=== PATIENT | male | born 1975 | race Caucasian/White ===

== ENCOUNTER → 2019-04-21 11:42 | Outpatient (CLI) | payer OTHER, SELFPAY ==
[2019-04-21 12:36] LABS: Influenza A and B by PCR Rapid Negative (Negative)
== END ==
PROVIDERS: Family Provider Family Medicine; PCP Family Medicine; Visit Provider Nurse Practitioner
DX: R50.9 Fever, unspecified (principal)
CPT/HCPCS: 87400

== ENCOUNTER → 2019-04-21 11:50 | Outpatient (CLI) | payer OTHER, SELFPAY ==
--- NOTE | 2019-04-21 11:51 | DI.RAD.S_ITS ---
PROCEDURE: XR CHEST 2V INDICATIONS: Cough, fever TECHNIQUE: 2 views of the chest were acquired. COMPARISON: None. FINDINGS: Surgical changes and devices: None. Lungs and pleura: Lungs are clear. No pleural effusions or pneumothorax. Mediastinum: Mediastinal contours are normal. Heart size is normal. Bones and chest wall: No suspicious bony abnormalities. Soft tissues appear unremarkable. IMPRESSION: Normal for age, source of current cough and fever symptoms is not seen. Dictated by: Tyron Mraiano M.D. on 04/21/2019 at 12:25 Approved by: Tyron Mariano M.D. on 04/21/2019 at 12:25
== END ==
PROVIDERS: PCP Family Medicine; Visit Provider Nurse Practitioner
DX: R05 Cough (principal); R50.9 Fever, unspecified
CPT/HCPCS: 71046; 87400

== ENCOUNTER → 2020-11-08 15:41 | Outpatient (CLI) | payer BC, SELFPAY ==
[2020-11-08 16:07] LABS: COVID19 -Nasal RAPID Negative (Negative)
== END ==
PROVIDERS: PCP Family Medicine; Visit Provider Physician Assistant
DX: R05 Cough (principal)
CPT/HCPCS: 87635

== ENCOUNTER → 2021-09-15 09:01 | Outpatient (CLI) | payer BC, SELFPAY ==
[2021-09-15 10:13] LABS: Add Manual Diff / Slide Review NO; Basophils Absolute Auto 0 /uL (0-100); Basophils Percent Auto 0.7 % (0-2); Eosinophils Absolute Auto 100 /uL (0-450); Eosinophils Percent Auto 1.5 % (2-4); Hematocrit 46.8 % (41-53); Lymphocytes Absolute Auto 1800 /uL (1100-4500); Lymphocytes Percent Auto 36.9 % (25-40); Mean Corpuscular HGB Conc 34.2 % (30-36); Mean Corpuscular Hemoglobin 29.7 PG (26-34); Mean Corpuscular Volume 86.7 fL (80-100); Monocytes Absolute Auto 500 /uL (0-900); Monocytes Percent Auto 9.6 % (3-14); Neutrophils Absolute Auto 2500 /uL (1500-7000); Neutrophils Percent Auto 51.3 % (50-75); Platelet Count 222 X10^3/uL (150-400); Red Blood Cell Count 5.39 X10^6/uL (4.5-5.9); Red Cell Distribution Width 12.8 % (11.6-14.8); White Blood Cell Count 4.8 X10^3/uL (4.5-11.0)
[2021-09-15 11:00] LABS: Alanine Aminotransferase 37 IU/L (<50); Albumin 4.4 g/dL (3.5-5.0); Albumin Globulin Ratio 1.6 (1.0-2.8); Alkaline Phosphatase 59 U/L (38-126); Aspartate Aminotransferase 35 IU/L (17-59); Bilirubin Total 0.5 mg/dL (0.2-1.3); Blood Urea Nitrogen 13 mg/dL (9-20); Calcium 9.3 mg/dL (8.4-10.2); Carbon Dioxide 30 mmol/L (22-32); Chloride 103 mmol/L (98-107); Cholesterol 239 mg/dL (140-199); Estimated Glomerular Filt Rate > 60.0 mL/min (>60); Globulin 2.7 g/dL (1.7-4.1); Glucose 97 mg/dL (70-100); HDL Cholesterol 40 mg/dL (40-60); HEMOLYSIS < 15 (0-50); LDL Cholesterol Calculated 163 mg/dL (<100); Potassium 3.9 mmol/L (3.4-5.1); Sodium 140 mmol/L (137-145); Total Protein 7.1 g/dL (6.3-8.2); Triglycerides 178 mg/dL (35-150)
[2021-09-15 11:27] LABS: TSH w/ Reflex to FT4 2.36 uIU/mL (0.47-4.68)
== END ==
PROVIDERS: PCP Family Medicine; Referring Provider Physician Assistant; Visit Provider Physician Assistant
DX: E78.5 Hyperlipidemia, unspecified (principal); Z13.0 Encounter for screening for diseases of the blood and blood-forming organs and certain disorders involving the immune mechanism
CPT/HCPCS: 36415; 80053; 80061; 84443; 85025

== ENCOUNTER → 2022-10-12 09:47 | Outpatient (CLI) | payer BC, SELFPAY ==
--- NOTE | 2022-10-12 09:52 | DI.RAD.S_ITS ---
PROCEDURE: XR LUMBAR SPINE 2-3V INDICATIONS: recurrent LBP with radiation of pain into left leg TECHNIQUE: 3 views of the lumbar spine were acquired. COMPARISON: None. FINDINGS: Bones: 5 [id number] vertebrae are present. There is grade 1, 6 mm retrolisthesis of L2 on L3. No vertebral body compression fractures. Mild degenerative endplate changes throughout lumbar spine is seen. No suspicious bony lesions. Soft tissues: Overlying bowel gas pattern is normal. No suspicious soft tissue calcifications. IMPRESSION: Grade 1 retrolisthesis of L2 on L3. No acute compression fracture. Mild degenerative disc disease throughout lumbar spine. Dictated by: Taurus Banegas M.D. on 10/12/2022 at 13:19 Approved by: Taurus Banegas M.D. on 10/12/2022 at 13:20
[2022-10-12 11:19] LABS: Alanine Aminotransferase 45 IU/L (<50); Albumin 4.7 g/dL (3.5-5.0); Albumin Globulin Ratio 1.7 (1.0-2.8); Alkaline Phosphatase 64 U/L (38-126); Aspartate Aminotransferase 37 IU/L (17-59); BUN Creatinine Ratio 12.5 (6-22); Bilirubin Total 0.6 mg/dL (0.2-1.3); Blood Urea Nitrogen 13 mg/dL (9-20); Calcium 9.2 mg/dL (8.4-10.2); Carbon Dioxide 29 mmol/L (22-32); Chloride 102 mmol/L (98-107); Cholesterol 246 mg/dL (140-199); Estimated Glomerular Filt Rate > 60 mL/min (>60); Globulin 2.8 g/dL (1.7-4.1); Glucose 97 mg/dL (70-100); HDL Cholesterol 47 mg/dL (40-60); HEMOLYSIS < 15 (0-50); LDL Cholesterol Calculated 166 mg/dL (<100); Sodium 138 mmol/L (137-145); Total Protein 7.5 g/dL (6.3-8.2); Triglycerides 166 mg/dL (35-150)
[2022-10-12 11:46] LABS: TSH w/ Reflex to FT4 3.24 uIU/mL (0.47-4.68)
== END ==
PROVIDERS: PCP Family Medicine; Referring Provider Physician Assistant; Visit Provider Physician Assistant
DX: M43.16 Spondylolisthesis, lumbar region (principal); M51.16 Intervertebral disc disorders with radiculopathy, lumbar region; E78.2 Mixed hyperlipidemia
CPT/HCPCS: 36415; 72100; 80053; 80061; 84443

== ENCOUNTER → 2022-11-09 10:09 | Outpatient (CLI) | payer BC, SELFPAY ==
[2022-11-09 11:18] LABS: Influenza A - CEPHEID Flu A POSITIVE (NEGATIVE); Influenza B - CEPHEID Flu B NEGATIVE (NEGATIVE); Respiratory Syncytial Virus Negative (Negative)
[2022-11-09 11:25] LABS: COVID-19 CEPHEID 4-PLEX PCR Negative (Negative)
== END ==
PROVIDERS: PCP Family Medicine; Visit Provider Nurse Practitioner Family
DX: R05.9 Cough, unspecified (principal); Z20.822 Contact with and (suspected) exposure to COVID-19
CPT/HCPCS: 0241U

== ENCOUNTER → 2022-12-12 09:09 | Outpatient (CLI) | payer BC, SELFPAY ==
[2022-12-12 11:00] LABS: Cholesterol 152 mg/dL (140-199); HDL Cholesterol 46 mg/dL (40-60); LDL Cholesterol Calculated 79 mg/dL (<100); Triglycerides 136 mg/dL (35-150)
== END ==
PROVIDERS: PCP Family Medicine; Referring Provider Physician Assistant; Visit Provider Physician Assistant
DX: E78.2 Mixed hyperlipidemia (principal)
CPT/HCPCS: 36415; 80061

== ENCOUNTER → 2023-03-15 09:18 | Outpatient (CLI) | payer BC, SELFPAY | PROVIDERS: PCP Family Medicine; Visit Provider Nurse Practitioner Family | DX: J02.9 Acute pharyngitis, unspecified (principal) | CPT/HCPCS: 87070 ==

== ENCOUNTER → 2024-08-25 14:50 | Outpatient (CLI) | payer OTHER, SELFPAY ==
--- NOTE | 2024-08-25 14:52 | DI.RAD.S_ITS ---
PROCEDURE: XR SHOULDER RT MIN 2V INDICATIONS: Right shoulder pain with rotation/forward back TECHNIQUE: AP external rotation, internal rotation, and Y-views COMPARISON: None. FINDINGS: Bones: No fractures or dislocations. No suspicious bony lesions. Visualized ribs appear intact. The joint spaces are preserved. Soft tissues: No suspicious soft tissue calcifications. The visualized right hemithorax is within normal limits. IMPRESSION: No acute fracture dislocation of the right shoulder. Dictated by: Jose Morris M.D. on 08/25/2024 at 15:59 Approved by: Jose Morris M.D. on 08/25/2024 at 16:00
--- NOTE | 2024-08-25 14:52 | DI.RAD.S_ITS ---
PROCEDURE: XR ANKLE LT MIN 3V INDICATIONS: Left ankle pain, anterior taler bones; hx of injury in April TECHNIQUE: 3 views of the ankle were acquired. COMPARISON: None. FINDINGS: Please note that evaluation is limited due to suboptimal positioning. Within this limitation, no acute fracture or dislocation. The ankle mortise is preserved on the nonweightbearing view. No talar dome osteochondral defect. Heterotopic ossification at the inferior tips of the medial and lateral malleoli, likely secondary to prior ligamentous injury. Heterotopic calcification superior to the dorsal talar neck with mild tibiotalar osteoarthritis. No significant tibiotalar joint effusion. Faint Achilles calcaneal enthesopathy. IMPRESSION: 1. No acute fracture or dislocation of the left ankle. 2. 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 3. Heterotopic ossification at the dorsal talar neck along with mild tibiotalar osteoarthritis, which can be seen in the setting of anterior ankle impingement pathology. Dictated by: Jose Morris M.D. on 08/25/2024 at 15:56 Approved by: Jose Morris M.D. on 08/25/2024 at 15:59
== END ==
PROVIDERS: PCP Family Medicine; Referring Provider Physician Assistant; Visit Provider Physician Assistant
DX: M25.572 Pain in left ankle and joints of left foot (principal); G89.29 Other chronic pain; M25.511 Pain in right shoulder
CPT/HCPCS: 73030; 73610

== ENCOUNTER → 2024-10-02 09:05 | Outpatient (CLI) | payer OTHER, SELFPAY ==
[2024-10-02 11:37] LABS: Alanine Aminotransferase 48 IU/L (<50); Albumin 4.5 g/dL (3.5-5.0); Alkaline Phosphatase 50 U/L (38-126); Aspartate Aminotransferase 37 IU/L (17-59); BUN Creatinine Ratio 13.5 (6-22); Bilirubin Total 0.5 mg/dL (0.2-1.3); Blood Urea Nitrogen 12 mg/dL (9-20); Calcium 9.3 mg/dL (8.4-10.2); Carbon Dioxide 30 mmol/L (22-32); Chloride 104 mmol/L (98-107); Cholesterol 163 mg/dL (140-199); Estimated Glomerular Filt Rate > 60 mL/min (>60); Globulin 2.3 g/dL (1.7-4.1); Glucose 98 mg/dL (70-100); HDL Cholesterol 47 mg/dL (40-60); HEMOLYSIS < 15 (0-50); LDL Cholesterol Calculated 91 mg/dL (<100); Potassium 4.2 mmol/L (3.4-5.1); Sodium 139 mmol/L (137-145); Total Protein 6.8 g/dL (6.3-8.2); Triglycerides 126 mg/dL (35-150)
[2024-10-02 12:01] LABS: TSH w/ Reflex to FT4 3.15 uIU/mL (0.47-4.68)
== END ==
PROVIDERS: PCP Family Medicine; Referring Provider Physician Assistant; Visit Provider Physician Assistant
DX: E78.2 Mixed hyperlipidemia (principal); M25.511 Pain in right shoulder
CPT/HCPCS: 36415; 80053; 80061; 84443

== ENCOUNTER 2025-10-25 10:40 | Emergency (ER) | payer OTHER, SELFPAY ==
[2025-10-25] VITALS (21 sets, daily range): BP systolic 146–203; BP diastolic 76–103; PULSE 55–85; RESP 14–27; TEMP 36.6; O2SAT 93–100; BMI 32.8
--- NOTE | 2025-10-25 11:06 | DI.CT.S_ITS ---
PROCEDURE: CT HEAD/BRAIN WO CON INDICATIONS: headache TECHNIQUE: Noncontrast 4.5 mm thick angled axial sections acquired from the foramen magnum to the vertex, with coronal and sagittal reformats. For radiation dose reduction, the following was used: automated exposure control, adjustment of mA and/or kV according to patient size. COMPARISON: None. FINDINGS: Image quality: Diagnostic. CSF spaces: Basal cisterns are patent. No extra-axial fluid collections. Ventricles are normal in size and shape. Brain: No midline shift. No intracranial mass effect or hemorrhage. Nguyễn- white matter interface is normal. Skull and face: Calvarium and visualized facial bones are intact, without suspicious lesions. Sinuses: Visualized sinuses and mastoids are clear. IMPRESSION: No acute intracranial pathology. Dictated by: Marlo Dahl M.D. on 10/25/2025 at 11:28 Approved by: Marlo Dahl M.D. on 10/25/2025 at 11:29
--- NOTE | 2025-10-25 11:44 | ED.HA ---
HPI - Headache <Benjamin Martines MD - Last Filed: 10/26/25 08:21> General Chief Complaint: Headache Stated Complaint: Severe headache. Time Seen by Provider: 10/25/25 11:06 Mode of arrival: Ambulatory History of Present Illness HPI Narrative: Patient had sudden onset global headache without syncope at 6:30 a.m. this morning. Patient states this is the 2nd episode. First episode 4 days ago. Both involving sexual activity. No prior history of brain aneurysm or brain tumor or brain bleed. Patient states headache 6/10 at this time. Is not on any blood thinners. No numbness tingling or weakness. Denies any allergies medications. No neck pain. Reviewed with patient will need CT head CT angiogram head and neck blood work pain control and written consent reviewed with them risks and benefits for lumbar puncture. Related Data Previous Rx's ?Medication ?Instructions ?Recorded rosuvastatin 10 mg tablet 10 mg PO BEDTIME #90 tabs 11/02/24 bupropion HCl 150 mg 24 hr tablet, 300 mg (2 x 150 mg) PO QAM #180 08/06/25 extended release (Wellbutrin XL) tabs Allergies Allergy/AdvReac Type Severity Reaction Status Date / Time No Known Drug Allergies Allergy Verified 03/18/25 11:31 Review of Systems <Benjamin Martines MD - Last Filed: 10/26/25 08:21> Review of Systems Narrative: GENERAL: Negative chills, fatigue, malaise, fever, sweats. HEENT: Negative sinus pain, ear pain, sore throat RESPIRATORY: Negative dyspnea, cough CARDIOVASCULAR: Negative chest pain, palpitations GASTROINTESTINAL: Negative vomiting, nausea, abdominal pain : Negative dysuria, frequency, hematuria MUSCULOSKELETAL: Negative muscle or bony pain SKIN: Negative rash, skin lesions NEUROLOGIC: Negative weakness, numbness positive headache negative syncope ROS Unobtainable: All systems reviewed & are unremarkable except as noted in HPI and below Patient History <Benjamin Martines MD - Last Filed: 10/26/25 08:21> Medical History Asthma Chicken pox (~1981) Dry cough Encounter for well adult exam without abnormal findings Fractures (~1988) Surgical History Anesthesia History of third molar tooth extraction (~1998) Status post hernia repair (~1983) Social History marital status: Smoking Status: Never smoker alcohol intake: current (1 A DAY ) substance use type: does not use Smoking Status: Never smoker Exam <Benjamin Martines MD - Last Filed: 10/26/25 08:21> Narrative Exam Narrative: GENERAL: in no distress, not toxic not dyspneic HEAD: Normocephalic. EYES: Pupils equal round no papilledema no photophobia on 5 the scope ENT: Mucous membranes moist. NECK: Trachea midline. Full active range of motion denies any neck pain. No meningeal signs. CARDIOVASCULAR: Regular rate and rhythm RESPIRATORY: Clear to auscultation. Breath sounds equal bilaterally. No wheezes, rales, or rhonchi. GASTROINTESTINAL: Abdomen soft, BACK: No flank tenderness. EXTREMITIES: No gross deformities. NEURO: AOx4. 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: Warm and dry PSYCH: Not anxious, is cooperative Initial Vital Signs Initial Vital Signs: Vital Signs Temperature 98 F 10/25/25 10:58 Pulse Rate 67 10/25/25 10:58 Respiratory Rate 17 10/25/25 10:58 Blood Pressure 183/92 H 10/25/25 10:58 Pulse Oximetry 98 10/25/25 10:58 Oxygen Delivery Method Room Air 10/25/25 10:58 <Ankita Tellez DO - Last Filed: 10/25/25 23:59> Initial Vital Signs Initial Vital Signs: Vital Signs Temperature 98 F 10/25/25 10:58 Pulse Rate 67 10/25/25 10:58 Respiratory Rate 17 10/25/25 10:58 Blood Pressure 183/92 H 10/25/25 10:58 Pulse Oximetry 98 10/25/25 10:58 Oxygen Delivery Method Room Air 10/25/25 10:58 Procedures <Benjamin Martines MD - Last Filed: 10/26/25 08:21> Lumbar Puncture Time of procedure: 13:30 Time Out Performed: Yes Patient Position: left lateral decubitus Skin Prep: 0.5% Chlorhexidine/Alcohol Local Anesthetic: lidocaine 2% and with epi Amount of anesthesia used (mL): 3 Spinal Needle Gauge: 22G Interspace Used: L4-L5 Additional Comments: Unable to obtain CSF fluid. Unsuccessful attempts. Four attempts were tried. Patient moving bilateral upper extremities, lower extremities that difficulty no numbness or tingling or weakness of the legs. Course <Benjamin Martines MD - Last Filed: 10/26/25 08:21> Orders Ordered: Discontinued Medications Acetaminophen (Acetaminophen 325 Mg Tablet) 975 mg PO NOW ONE Stop: 10/25/25 19:50 Last Admin: 10/25/25 19:52 Dose: 975 mg Documented By: ELVA Hydromorphone HCl (Hydromorphone 1 Mg/Ml Syringe) 1 mg IV NOW ONE Stop: 10/25/25 13:18 Last Admin: 10/25/25 13:23 Dose: 1 mg Documented By: SIOMARA Sodium Chloride (Normal Saline 0.9%) 1,000 mls @ 1,000 mls/hr IV BOLUS ONE Stop: 10/25/25 12:48 Last Infusion: 10/25/25 14:04 Dose: Infused Documented By: Admin: 10/25/25 12:34 Dose: 1,000 mls/hr Documented By: SIOMARA Lidocaine/Epinephrine (Lidocaine 2% W/Epi Inj 10 Ml Vial) 10 ml INJ NOW ONE Stop: 10/25/25 13:18 Last Admin: 10/25/25 13:46 Dose: 10 ml Documented By: SIOMARA Morphine Sulfate (Morphine 4 Mg/Ml Inj) 4 mg IV NOW ONE Stop: 10/25/25 11:50 Last Admin: 10/25/25 12:34 Dose: 4 mg Documented By: SIOMARA Morphine Sulfate (Morphine 4 Mg/Ml Inj) 4 mg IV NOW ONE Stop: 10/25/25 16:44 Last Admin: 10/25/25 16:54 Dose: 4 mg Documented By: SIOMARA Ondansetron HCl (Ondansetron 4 Mg/2 Ml Inj) 4 mg IV NOW ONE Stop: 10/25/25 11:50 Last Admin: 10/25/25 12:34 Dose: 4 mg Documented By: SIOMARA Vital Signs Vital signs: Vital Signs - 8 hr 10/25/25 16:00 10/25/25 16:00 10/25/25 16:10 Pulse Rate 74 62 Respiratory Rate 27 H 15 Blood Pressure 174/92 H Pulse Oximetry 96 99 Oxygen Delivery Method 10/25/25 16:10 10/25/25 16:15 10/25/25 16:15 Pulse Rate 66 Respiratory Rate 16 Blood Pressure 146/85 H 164/95 H Pulse Oximetry 100 Oxygen Delivery Method 10/25/25 16:20 10/25/25 16:20 10/25/25 16:30 Pulse Rate 68 72 Respiratory Rate 19 20 Blood Pressure 163/101 H Pulse Oximetry 100 98 Oxygen Delivery Method 10/25/25 16:31 10/25/25 16:31 10/25/25 17:00 Pulse Rate 61 75 Respiratory Rate 14 20 Blood Pressure 203/100 H Pulse Oximetry 98 97 Oxygen Delivery Method 10/25/25 17:01 10/25/25 17:01 10/25/25 17:30 Pulse Rate 71 67 Respiratory Rate 19 16 Blood Pressure 164/83 H Pulse Oximetry 97 95 Oxygen Delivery Method 10/25/25 17:30 10/25/25 19:30 10/25/25 19:30 Pulse Rate 65 Respiratory Rate 18 Blood Pressure 146/76 H 158/97 H Pulse Oximetry 96 Oxygen Delivery Method Room Air 10/25/25 20:00 10/25/25 20:00 10/25/25 20:30 Pulse Rate 61 70 Respiratory Rate 14 26 H Blood Pressure 149/88 H Pulse Oximetry 97 97 Oxygen Delivery Method Room Air 10/25/25 20:30 10/25/25 21:00 10/25/25 21:01 Pulse Rate 60 70 Respiratory Rate 15 20 Blood Pressure 157/88 H Pulse Oximetry 95 95 Oxygen Delivery Method 10/25/25 21:01 Pulse Rate Respiratory Rate Blood Pressure 150/88 H Pulse Oximetry Oxygen Delivery Method <Ankita Tellez, DO - Last Filed: 10/25/25 23:59> Orders Ordered: Discontinued Medications Acetaminophen (Acetaminophen 325 Mg Tablet) 975 mg PO NOW ONE Stop: 10/25/25 19:50 Last Admin: 10/25/25 19:52 Dose: 975 mg Documented By: SH Hydromorphone HCl (Hydromorphone 1 Mg/Ml Syringe) 1 mg IV NOW ONE Stop: 10/25/25 13:18 Last Admin: 10/25/25 13:23 Dose: 1 mg Documented By: CB Sodium Chloride (Normal Saline 0.9%) 1,000 mls @ 1,000 mls/hr IV BOLUS ONE Stop: 10/25/25 12:48 Last Infusion: 10/25/25 14:04 Dose: Infused Documented By: Admin: 10/25/25 12:34 Dose: 1,000 mls/hr Documented By: SIOMARA Lidocaine/Epinephrine (Lidocaine 2% W/Epi Inj 10 Ml Vial) 10 ml INJ NOW ONE Stop: 10/25/25 13:18 Last Admin: 10/25/25 13:46 Dose: 10 ml Documented By: SIOMARA Morphine Sulfate (Morphine 4 Mg/Ml Inj) 4 mg IV NOW ONE Stop: 10/25/25 11:50 Last Admin: 10/25/25 12:34 Dose: 4 mg Documented By: SIOMARA Morphine Sulfate (Morphine 4 Mg/Ml Inj) 4 mg IV NOW ONE Stop: 10/25/25 16:44 Last Admin: 10/25/25 16:54 Dose: 4 mg Documented By: SIOMARA Ondansetron HCl (Ondansetron 4 Mg/2 Ml Inj) 4 mg IV NOW ONE Stop: 10/25/25 11:50 Last Admin: 10/25/25 12:34 Dose: 4 mg Documented By: SIOMARA Vital Signs Vital signs: Vital Signs - 8 hr 10/25/25 16:00 10/25/25 16:00 10/25/25 16:10 Pulse Rate 74 62 Respiratory Rate 27 H 15 Blood Pressure 174/92 H Pulse Oximetry 96 99 Oxygen Delivery Method 10/25/25 16:10 10/25/25 16:15 10/25/25 16:15 Pulse Rate 66 Respiratory Rate 16 Blood Pressure 146/85 H 164/95 H Pulse Oximetry 100 Oxygen Delivery Method 10/25/25 16:20 10/25/25 16:20 10/25/25 16:30 Pulse Rate 68 72 Respiratory Rate 19 20 Blood Pressure 163/101 H Pulse Oximetry 100 98 Oxygen Delivery Method 10/25/25 16:31 10/25/25 16:31 10/25/25 17:00 Pulse Rate 61 75 Respiratory Rate 14 20 Blood Pressure 203/100 H Pulse Oximetry 98 97 Oxygen Delivery Method 10/25/25 17:01 10/25/25 17:01 10/25/25 17:30 Pulse Rate 71 67 Respiratory Rate 19 16 Blood Pressure 164/83 H Pulse Oximetry 97 95 Oxygen Delivery Method 10/25/25 17:30 10/25/25 19:30 10/25/25 19:30 Pulse Rate 65 Respiratory Rate 18 Blood Pressure 146/76 H 158/97 H Pulse Oximetry 96 Oxygen Delivery Method Room Air 10/25/25 20:00 10/25/25 20:00 10/25/25 20:30 Pulse Rate 61 70 Respiratory Rate 14 26 H Blood Pressure 149/88 H Pulse Oximetry 97 97 Oxygen Delivery Method Room Air 10/25/25 20:30 10/25/25 21:00 10/25/25 21:01 Pulse Rate 60 70 Respiratory Rate 15 20 Blood Pressure 157/88 H Pulse Oximetry 95 95 Oxygen Delivery Method 10/25/25 21:01 Pulse Rate Respiratory Rate Blood Pressure 150/88 H Pulse Oximetry Oxygen Delivery Method MDM - Headache <Benjamin Martines MD - Last Filed: 10/26/25 08:21> Lab Data 10/25/25 12:17 10/25/25 12:17 Labs: Lab Results 10/25/25 10/25/25 Range/Units 12:17 16:35 WBC 6.0 (4.5-11.0) X10^3/uL RBC 5.44 (4.5-5.9) X10^6/uL Hgb 15.7 (13.5-17.5) g/dL Hct 46.5 (41-53) % MCV 85.5 (80-100) fL MCH 28.8 (26-34) PG MCHC 33.6 (30-36) % RDW 12.9 (11.6-14.8) % Plt Count 237 (150-400) X10^3/uL Neut % (Auto) 62.9 (50-75) % Lymph % (Auto) 28.1 (25-40) % [place] % (Auto) 7.6 (3-14) % Eos % (Auto) 0.8 L (2-4) % Baso % (Auto) 0.6 (0-2) % Neut # (Auto) 3700 (5746-9057) /uL Lymph # (Auto) 1700 (2707-5294) /uL [place] # (Auto) 500 (0-900) /uL Eos # (Auto) 0 (0-450) /uL Baso # (Auto) 0 (0-100) /uL PT 10.8 (9.4-12.5) SECONDS INR 1.0 (0.9-1.3) APTT 28 (25.1-36.5) SECONDS Sodium 141 (137-145) mmol/L Potassium 3.8 (3.4-5.1) mmol/L Chloride 104 (98-107) mmol/L Carbon Dioxide 29 (22-32) mmol/L BUN 11 (9-20) mg/dL Creatinine 0.89 (0.66-1.25) mg/dL Estimated GFR > 60 (>60) mL/min BUN/Creatinine Ratio 12.4 (6-22) Glucose 110 H (70-99) mg/dL Calcium 9.1 (8.4-10.2) mg/dL Total Bilirubin 0.4 (0.2-1.3) mg/dL AST 37 (17-59) IU/L ALT 44 (<50) IU/L Alkaline Phosphatase 57 (38-126) U/L Total Protein 7.8 (6.3-8.2) g/dL Albumin 4.9 (3.5-5.0) g/dL Globulin 2.9 (1.7-4.1) g/dL Albumin/Globulin Ratio 1.7 (1.0-2.8) Triglycerides 276 H (35-150) mg/dL Cholesterol 194 (140-199) mg/dL LDL Cholesterol, Calc 85 (<100) mg/dL HDL Cholesterol 54 (40-60) mg/dL CSF Tube Number 3 CSF Volume 2.0 ml CSF Appearance Clear (Clear) CSF Color Colorless (Colorless) CSF WBC 2 (0-5) MONO/uL CSF RBC 4 (0-5) RBC /uL CSF Mononuclear WBCs Not Reportable CSF Polynuclear WBCs Not Reportable CSF Glucose 63 (40-70) mg/dL CSF Total Protein 87 H (12-60) mg/dL CSF C.neoform/gat PCR Not detected (Not Detect) CSF CMV DNA (PCR) Not detected (Not Detect) CSF Enterovirus (PCR) Not detected (Not Detect) CSF E. coli (PCR) Not detected (Not Detect) CSF H. influenzae (PCR) Not detected (Not Detect) CSF HSV I (PCR) Not detected (Not Detect) CSF HSV II (PCR) Not detected (Not Detect) CSF HHV 6 (PCR) Not detected (Not Detect) CSF L.monocytogenes PCR Not detected (Not Detect) CSF N. meningitidis PCR Not detected (Not Detect) CSF Parechovirus (PCR) Not detected (Not Detect) CSF S. agalactiae (PCR) Not detected (Not Detect) CSF S. pneumoniae (PCR) Not detected (Not Detect) CSF VZV (PCR) Not detected (Not Detecte) Imaging Data CT scan - head: Radiologist's Impression: [address] [address] [address] Scan Report Signed Patient: Ken Dinh MR#: [id number] : 1975 Acct:[id number] Age/Sex: 50 / M Date of Service: 10/25/25 Loc: ED Accession Number: [id number] Procedure: CT head/brain wo con Ordering Provider: Benjamin Martines MD PROCEDURE: CT HEAD/BRAIN WO CON INDICATIONS: headache TECHNIQUE: Noncontrast 4.5 mm thick angled axial sections acquired from the foramen magnum to the vertex, with coronal and sagittal reformats. For radiation dose reduction, the following was used: automated exposure control, adjustment of mA and/or kV according to patient size. COMPARISON: None. FINDINGS: Image quality: Diagnostic. CSF spaces: Basal cisterns are patent. No extra-axial fluid collections. Ventricles are normal in size and shape. Brain: No midline shift. No intracranial mass effect or hemorrhage. Nguyễn-white matter interface is normal. Skull and face: Calvarium and visualized facial bones are intact, without suspicious lesions. Sinuses: Visualized sinuses and mastoids are clear. IMPRESSION: No acute intracranial pathology. Dictated by: Marlo Dahl M.D. on 10/25/2025 at 11:28 Approved by: Marlo Dahl M.D. on 10/25/2025 at 11:29 CTA - brain/neck: Radiologist's Impression: [address] [address] [address] Scan Report Signed Patient: Ken Dinh MR#: [id number] : 1975 Acct:[id number] Age/Sex: 50 / M Date of Service: 10/25/25 Loc: ED Accession Number: [id number] Procedure: CT angio head and neck Ordering Provider: Benjamin Martines MD PROCEDURE: CT ANGIO HEAD AND NECK INDICATIONS: Headache TECHNIQUE: After the administration of intravenous contrast, 1 mm thick sections acquired from the aortic arch through the [place] of [place]. 3-dimensional ioqchej-fcnztnmpv-mltdlgauft (MIP) and/or volume rendering reformats were acquired of the central intracranial vasculature and neck separately. For radiation dose reduction, the following was used: automated exposure control, adjustment of mA and/or kV according to patient size. COMPARISON: None. FINDINGS: Image quality: Diagnostic. Cerebral CT Angiogram: Internal carotid arteries: No acute findings. Intracranial ICA are patent with no significant stenosis. No occlusion. No aneurysm. Anterior cerebral arteries: Unremarkable. No significant stenosis. No occlusion. No aneurysm. Middle cerebral arteries: Unremarkable. No significant stenosis. No occlusion. No aneurysm. Posterior cerebral arteries: Unremarkable. No significant stenosis. No occlusion. No aneurysm. Basilar artery: Unremarkable. No significant stenosis. No occlusion. No aneurysm. Vertebral arteries: Unremarkable as visualized. Dural venous sinuses: Unremarkable given phase of enhancement. Other: Arterial phase appearance of the brain parenchyma is unremarkable. Neck CT Angiogram: Internal carotid arteries: Unremarkable. No significant stenosis. No dissection or occlusion. Common carotid arteries: Unremarkable. No significant stenosis. No dissection or occlusion. External carotid arteries: Unremarkable. No occlusion. Vertebral arteries: Unremarkable. No significant stenosis. No dissection or occlusion. Aortic Arch and Mediastinum: Partially visualized aortic arch unremarkable without evidence of aneurysm. Origins of the great vessels unremarkable. Other: Arterial phase soft tissues of the neck and chest are unremarkable. IMPRESSION: No significant intracranial arterial abnormality is seen. No significant abnormality is seen within the arteries of the neck. Any quantitative measurements of stenosis were performed using NASCET criteria. Approved by: Rachid Barfield M.D. on 10/25/2025 at 12:40 MDM Narrative Medical decision making narrative: Patient had sudden onset global headache without syncope at 6:30 a.m. this morning. Patient states this is the 2nd episode. First episode 4 days ago. Both involving sexual activity. No prior history of brain aneurysm or brain tumor or brain bleed. Patient states headache 6/10 at this time. Is not on any blood thinners. No numbness tingling or weakness. Denies any allergies medications. No neck pain. Reviewed with patient will need CT head CT angiogram head and neck blood work pain control and written consent reviewed with them risks and benefits for lumbar puncture. MDM After history and exam, CT head CT angio head and neck CBC CMP PT INR morphine Zofran consent for lumbar puncture Differential considered: Includes but not limited to intracranial bleed brain aneurysm Medical records reviewed: Lab Test results independently reviewed as above. Pertinent findings: WBC 6.0 hemoglobin 15.7 Imaging studies independently reviewed: CT head CT angiogram head and neck no acute finding Consultations: 3:45 p.m.. I spoke with Dr. Santiago, radiologist, he will try for fluoroscopy guided however the equipment he has here is suboptimal he states. He can not verify that it would be a pristine nonbloody lumbar puncture. Anesthesia is here now to assess for lumbar puncture. He can try if they are not successful. Re-evaluations: 1:48 p.m.. Attempted lumbar puncture, for attempts without success. Contacting anesthesia to assist. 1:52 p.m.. Spoke with JIGSAWYER, they will try to get a provider to help. Discussion: 3:00 p.m.. Conrad: Sign out to Dr Tellez, patient will need lumbar puncture from anesthesiologist or from radiologist. Contacting radiology department now. Anesthesia has been contacted already. Diagnosis: Headache 10/25/25 Dr. Tellez: 50-year-old male signed out to myself by Dr. Martines patient had post coital headache x2 several days apart. Patient had head CT Head non contrast and CT angio which shows no acute change, labs do not show any major changes. These are all reviewed by myself. Patient had attempted lumbar puncture with Dr. Martines which was unsuccessful. Anesthesia in the department for attempt when signed out to myself. Patient has been ambulating to the bathroom with out Patient is seen after lumbar puncture he tolerated this well. CSF fluid was examined by myself is clear in all 4 containers. Anesthesia very kindly obtain the lumbar puncture. He had accidentally placed the fluid in in the order for 3-1 tubes was labeled with patient's juan in the current order. Appearance was clear, patient has 2 white cells 4 RBCs, mononuclear WBCs not reportable secondary to 2 few cells, protein is 87 with a glucose of 83 CSF PCR is negative. SF Gram stain is negative and culture pending. Spoke with [facility] Neurology coordinator @ 1940 Spoke with Neurology at [facility] @ 2054. 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 Would have patient follow up his blood pressure which has been improving but was quite elevated initially. Patient is to return if he has recurrent episodes. <Ankita Tellez, DO - Last Filed: 10/25/25 23:59> Lab Data Labs: Lab Results 10/25/25 10/25/25 Range/Units 12:17 16:35 WBC 6.0 (4.5-11.0) X10^3/uL RBC 5.44 (4.5-5.9) X10^6/uL Hgb 15.7 (13.5-17.5) g/dL Hct 46.5 (41-53) % MCV 85.5 (80-100) fL MCH 28.8 (26-34) PG MCHC 33.6 (30-36) % RDW 12.9 (11.6-14.8) % Plt Count 237 (150-400) X10^3/uL Neut % (Auto) 62.9 (50-75) % Lymph % (Auto) 28.1 (25-40) % [place] % (Auto) 7.6 (3-14) % Eos % (Auto) 0.8 L (2-4) % Baso % (Auto) 0.6 (0-2) % Neut # (Auto) 3700 (8497-1189) /uL Lymph # (Auto) 1700 (3109-3322) /uL [place] # (Auto) 500 (0-900) /uL Eos # (Auto) 0 (0-450) /uL Baso # (Auto) 0 (0-100) /uL PT 10.8 (9.4-12.5) SECONDS INR 1.0 (0.9-1.3) APTT 28 (25.1-36.5) SECONDS Sodium 141 (137-145) mmol/L Potassium 3.8 (3.4-5.1) mmol/L Chloride 104 (98-107) mmol/L Carbon Dioxide 29 (22-32) mmol/L BUN 11 (9-20) mg/dL Creatinine 0.89 (0.66-1.25) mg/dL Estimated GFR > 60 (>60) mL/min BUN/Creatinine Ratio 12.4 (6-22) Glucose 110 H (70-99) mg/dL Calcium 9.1 (8.4-10.2) mg/dL Total Bilirubin 0.4 (0.2-1.3) mg/dL AST 37 (17-59) IU/L ALT 44 (<50) IU/L Alkaline Phosphatase 57 (38-126) U/L Total Protein 7.8 (6.3-8.2) g/dL Albumin 4.9 (3.5-5.0) g/dL Globulin 2.9 (1.7-4.1) g/dL Albumin/Globulin Ratio 1.7 (1.0-2.8) Triglycerides 276 H (35-150) mg/dL Cholesterol 194 (140-199) mg/dL LDL Cholesterol, Calc 85 (<100) mg/dL HDL Cholesterol 54 (40-60) mg/dL CSF Tube Number 3 CSF Volume 2.0 ml CSF Appearance Clear (Clear) CSF Color Colorless (Colorless) CSF WBC 2 (0-5) MONO/uL CSF RBC 4 (0-5) RBC /uL CSF Mononuclear WBCs Not Reportable CSF Polynuclear WBCs Not Reportable CSF Glucose 63 (40-70) mg/dL CSF Total Protein 87 H (12-60) mg/dL CSF C.neoform/gat PCR Not detected (Not Detect) CSF CMV DNA (PCR) Not detected (Not Detect) CSF Enterovirus (PCR) Not detected (Not Detect) CSF E. coli (PCR) Not detected (Not Detect) CSF H. influenzae (PCR) Not detected (Not Detect) CSF HSV I (PCR) Not detected (Not Detect) CSF HSV II (PCR) Not detected (Not Detect) CSF HHV 6 (PCR) Not detected (Not Detect) CSF L.monocytogenes PCR Not detected (Not Detect) CSF N. meningitidis PCR Not detected (Not Detect) CSF Parechovirus (PCR) Not detected (Not Detect) CSF S. agalactiae (PCR) Not detected (Not Detect) CSF S. pneumoniae (PCR) Not detected (Not Detect) CSF VZV (PCR) Not detected (Not Detecte) MDM Narrative Medical decision making narrative: Patient had sudden onset global headache without syncope at 6:30 a.m. this morning. Patient states this is the 2nd episode. First episode 4 days ago. Both involving sexual activity. No prior history of brain aneurysm or brain tumor or brain bleed. Patient states headache 6/10 at this time. Is not on any blood thinners. No numbness tingling or weakness. Denies any allergies medications. No neck pain. Reviewed with patient will need CT head CT angiogram head and neck blood work pain control and written consent reviewed with them risks and benefits for lumbar puncture. MDM After history and exam, CT head CT angio head and neck CBC CMP PT INR morphine Zofran consent for lumbar puncture Differential considered: Includes but not limited to intracranial bleed brain aneurysm Medical records reviewed: Lab Test results independently reviewed as above. Pertinent findings: WBC 6.0 hemoglobin 15.7 Imaging studies independently reviewed: CT head CT angiogram head and neck no acute finding Consultations: 3:45 p.m.. I spoke with Dr. Santiago, radiologist, he will try for fluoroscopy guided however the equipment he has here is suboptimal he states. He can not verify that it would be a pristine nonbloody lumbar puncture. Anesthesia is here now to assess for lumbar puncture. He can try if they are not successful. Re-evaluations: 1:48 p.m.. Attempted lumbar puncture, for attempts without success. Contacting anesthesia to assist. 1:52 p.m.. Spoke with JIGSAWYER, they will try to get a provider to help. Discussion: 3:00 p.m.. Conrad: Sign out to Dr Tellez, patient will need lumbar puncture from anesthesiologist or from radiologist. Contacting radiology department now. Anesthesia has been contacted already. Diagnosis: Headache 10/25/25 Dr. Tellez: 50-year-old male signed out to myself by Dr. Kaye patient had post coital headache x2 several days apart. Patient had head CT Head non contrast and CT angio which shows no acute change, labs do not show any major changes. These are all reviewed by myself. Patient had attempted lumbar puncture with Dr. Martines which was unsuccessful. Anesthesia in the department for attempt when signed out to myself. Patient has been ambulating to the bathroom with out Patient is seen after lumbar puncture he tolerated this well. CSF fluid was examined by myself is clear in all 4 containers. Anesthesia very kindly obtain the lumbar puncture. He had accidentally placed the fluid in in the order for 3-1 tubes was labeled with patient's juan in the current order. Appearance was clear, patient has 2 white cells 4 RBCs, mononuclear WBCs not reportable secondary to 2 few cells, protein is 87 with a glucose of 83 CSF PCR is negative. SF Gram stain is negative and culture pending. Spoke with [facility] Neurology coordinator @ 1940 Spoke with Neurology at [facility] @ 2054. 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 Would have patient follow up his blood pressure which has been improving but was quite elevated initially. Patient is to return if he has recurrent episodes. Discharge Plan Departure Patient Disposition: Home Clinical Impression: Headache Qualifiers: Headache type: unspecified Headache chronicity pattern: acute headache Intractability: not intractable Qualified Code(s): R51.9 - Headache, unspecified Instructions: DI for Headache Activity Restrictions/Additional Instructions: Your workup today did show your protein with a little bit high, your imaging did not show any signs of bleeding otherwise. I did speak with Neurology through [facility] there has a syndrome called postcoital headache that has possible but if you have recurrent episodes you should have repeat evaluation. I would recommend following up with your primary care physician for rechecked as well as re-evaluation of your blood pressure as it was quite elevated initially. Please return if you have recurrent symptoms, severe headaches, any passing out, any new numbness, tingling or weakness, any new neurologic changes, any loss of bowel or bladder control, difficulty with ambulation or movement, fevers or other new or concerning changes. Prescriptions: No Action rosuvastatin 10 mg tablet 10 mg PO BEDTIME Qty: 90 3RF Rx Instructions: Take one tablet at bedtime for high cholesterol bupropion HCl [Wellbutrin XL] 150 mg tablet extended release 24 hr 300 mg PO QAM Qty: 180 0RF Referrals: Samy Morgan MD [Primary Care Provider, Family Practice] Stand Alone Forms: Patient Portal/API
--- NOTE | 2025-10-25 11:49 | DI.CT.S_ITS ---
PROCEDURE: CT ANGIO HEAD AND NECK INDICATIONS: Headache TECHNIQUE: After the administration of intravenous contrast, 1 mm thick sections acquired from the aortic arch through the [place] [facility] [place]. 3-dimensional tnzsvbh-owigzqtva-ucfepykstx (MIP) and/or volume rendering reformats were acquired of the central intracranial vasculature and neck separately. For radiation dose reduction, the following was used: automated exposure control, adjustment of mA and/or kV according to patient size. COMPARISON: None. FINDINGS: Image quality: Diagnostic. Cerebral CT Angiogram: Internal carotid arteries: No acute findings. Intracranial ICA are patent with no significant stenosis. No occlusion. No aneurysm. Anterior cerebral arteries: Unremarkable. No significant stenosis. No occlusion. No aneurysm. Middle cerebral arteries: Unremarkable. No significant stenosis. No occlusion. No aneurysm. Posterior cerebral arteries: Unremarkable. No significant stenosis. No occlusion. No aneurysm. Basilar artery: Unremarkable. No significant stenosis. No occlusion. No aneurysm. Vertebral arteries: Unremarkable as visualized. Dural venous sinuses: Unremarkable given phase of enhancement. Other: Arterial phase appearance of the brain parenchyma is unremarkable. Neck CT Angiogram: Internal carotid arteries: Unremarkable. No significant stenosis. No dissection or occlusion. Common carotid arteries: Unremarkable. No significant stenosis. No dissection or occlusion. External carotid arteries: Unremarkable. No occlusion. Vertebral arteries: Unremarkable. No significant stenosis. No dissection or occlusion. Aortic Arch and Mediastinum: Partially visualized aortic arch unremarkable without evidence of aneurysm. Origins of the great vessels unremarkable. Other: Arterial phase soft tissues of the neck and chest are unremarkable. IMPRESSION: No significant intracranial arterial abnormality is seen. No significant abnormality is seen within the arteries of the neck. Any quantitative measurements of stenosis were performed using NASCET criteria. Approved by: Rachid Barfield M.D. on 10/25/2025 at 12:40
[2025-10-25 12:30] LABS: Add Manual Diff / Slide Review NO; Hematocrit 46.5 % (41-53); Hemoglobin 15.7 g/dL (13.5-17.5); Lymphocytes Absolute Auto 1700 /uL (1100-4500); Mean Corpuscular HGB Conc 33.6 % (30-36); Mean Corpuscular Hemoglobin 28.8 PG (26-34); Mean Corpuscular Volume 85.5 fL (80-100); Platelet Count 237 X10^3/uL (150-400)
[2025-10-25] MEDS: SODIUM CHLORIDE 0.9% 1,000 ML 1000 ML IV (12:34)
[2025-10-25] MEDS: MORPHINE 4 MG/ML INJ IV ×2 (12:34→16:54)
[2025-10-25] MEDS: ONDANSETRON 4 MG/2 ML INJ IV (12:34)
[2025-10-25 12:38] LABS: INR 1.0 (0.9-1.3); Prothrombin Time 10.8 SECONDS (9.4-12.5)
[2025-10-25 12:41] LABS: PTT Partial Thromboplastin Tim 28 SECONDS (25.1-36.5)
[2025-10-25 12:42] LABS: Alanine Aminotransferase 44 IU/L (<50); Albumin 4.9 g/dL (3.5-5.0); Albumin Globulin Ratio 1.7 (1.0-2.8); Alkaline Phosphatase 57 U/L (38-126); Blood Urea Nitrogen 11 mg/dL (9-20); Calcium 9.1 mg/dL (8.4-10.2); Carbon Dioxide 29 mmol/L (22-32); Chloride 104 mmol/L (98-107); Estimated Glomerular Filt Rate > 60 mL/min (>60); Globulin 2.9 g/dL (1.7-4.1); Glucose 110 mg/dL (70-99); HEMOLYSIS < 15 (0-50); Potassium 3.8 mmol/L (3.4-5.1); Sodium 141 mmol/L (137-145); Total Protein 7.8 g/dL (6.3-8.2)
--- NOTE | 2025-10-25 12:43 | PC.NURSE ---
Pt is ambulatory to and from CT. Rates his NICOLAS at 4/10. No resistance to passive flexion of the neck, negative Brudzinski. Denies photophobia, vision changes or Hx of migraines.
[2025-10-25] MEDS: LIDOCAINE 2% W/EPI INJ 10 ML VIAL INJ (13:46)
[2025-10-25 17:36] LABS: CSF Tube Volume 2.0 mL
[2025-10-25 17:38] LABS: Red Blood Cell CSF 4 RBC /uL (0-5); White Blood Cell CSF 2 MONO/uL (0-5)
[2025-10-25 18:40] LABS: Cholesterol 194 mg/dL (140-199); HDL Cholesterol 54 mg/dL (40-60); Triglycerides 276 mg/dL (35-150)
--- NOTE | 2025-10-25 19:24 | W.PC.EDHO ---
Report received from DEYANIRA Teague
[2025-10-25] MEDS: ACETAMINOPHEN 325 MG TABLET 975 MG PO (19:52)
== END 2025-10-25 21:12 | disposition home or self-care (01) ==
PROVIDERS: Emergency Medicine; Emergency Provider Emergency Medicine; PCP Family Medicine
DX: R51.9 Headache, unspecified (principal)
CPT/HCPCS: 36415; 62272; 70450; 70496; 70498; 80053; 80061; 82945; 84157; 85025; 85610; 85730; 87070; 87205; 87798; 89051; 96374; 96375; 96376; 99284; J1171; J2250; J2272; J2405; J2704; J7030; Q9967